=== PATIENT | female | born 1960 | race Caucasian/White ===

== ENCOUNTER 2017-11-26 11:08 | Day surgery (SDC) | payer OTHER ==
[~2017-11-26] VITALS: Ht 165.1 cm; Wt 78.2 kg
[~2017-11-26 11:08] MED LIST: ALLEGRA ALLERG180 M1 PO; ALLEGRA ALLERG180 MG; AMIT50 PO; Amitriptyline H50 MG PO; BIOTIN1 MG PO; CODLIVC PO; DOXY100 PO; HYDACE5 PO; Hydrocodone-Ap1 EA20 PO; IBUP400 PO; LISHYD2012 PO; LORA1; Multiple Vitam1 EAC1 PO; NAPR220; VENL37.5; VITA-BEE WITH1 EACH PO; ZESTORETIC 20-121 EA PO
[2017-11-26] MEDS ORDERED: Venlafaxine HCl75 MG PO (11:54)
== END 2017-11-26 14:36 | disposition home or self-care (01) ==
LOC: ORSCSDS 11:08
PROVIDERS: Orthopaedic Surgery
PROC: 01N50ZZ Release Median Nerve, Open Approach (ICD-10-PCS; principal; 2017-11-26 12:15)
DX: G56.02 Carpal tunnel syndrome, left upper limb (principal); E03.9 Hypothyroidism, unspecified; M79.7 Fibromyalgia; Z79.899 Other long term (current) drug therapy; Z87.891 Personal history of nicotine dependence
CPT/HCPCS: J0690; J1885; J2250; J7120

== ENCOUNTER → 2018-02-15 | Outpatient (CLI) | payer OTHER ==
[~2018-02-15] MED LIST changes: +Venlafaxine HCl75 MG PO
== END ==
LOC: LAB EV 08:29 → LAB SHORT 08:29
DX: N39.0 Urinary tract infection, site not specified (principal)
CPT/HCPCS: 87086; 87147

== ENCOUNTER → 2018-02-25 | Outpatient (CLI) | payer BC | END | disposition home or self-care (01) | LOC: LAB EV 18:04 → LAB SHORT 18:04 | DX: N39.0 Urinary tract infection, site not specified (principal) | CPT/HCPCS: 87086; 87147 ==

== ENCOUNTER → 2018-04-17 | Outpatient (CLI) | payer BC | END | disposition home or self-care (01) | LOC: LAB EV 09:51 → LAB SHORT 09:51 | DX: N39.0 Urinary tract infection, site not specified (principal) | CPT/HCPCS: 87086 ==

== ENCOUNTER → 2019-10-23 | Outpatient (CLI) | payer BC ==
[2019-10-25 15:07] LABS: HPV 16 Negative (Negative); HPV 18 Negative (Negative); HPV OTHER HR TYPES Positive (Negative)
== END | disposition home or self-care (01) ==
LOC: LAB SHORT 13:15 → LAB 13:15
PROVIDERS: Obstetrics & Gynecology
DX: R87.810 Cervical high risk human papillomavirus (HPV) DNA test positive (principal)
CPT/HCPCS: 87624; 87625; 88142

== ENCOUNTER → 2019-11-24 | Outpatient (CLI) | payer BC | END | disposition home or self-care (01) | LOC: LAB EV 13:23 → LAB SHORT 13:23 | DX: R30.0 Dysuria (principal) | CPT/HCPCS: 87086 ==

== ENCOUNTER → 2019-11-28 | Outpatient (CLI) | payer BC | END | disposition home or self-care (01) | LOC: PLD 08:04 → LAB SHORT 08:04 | DX: R87.612 Low grade squamous intraepithelial lesion on cytologic smear of cervix (LGSIL) (principal); R87.810 Cervical high risk human papillomavirus (HPV) DNA test positive | CPT/HCPCS: 88305 ==

== ENCOUNTER → 2020-07-29 | Outpatient (CLI) | payer BC ==
[2020-07-30 14:09] LABS: HPV 16 Negative (Negative); HPV 18 Negative (Negative); HPV OTHER HR TYPES Positive (Negative)
== END | disposition home or self-care (01) ==
LOC: LAB 14:23 → LAB SHORT 14:23
PROVIDERS: Obstetrics & Gynecology
DX: R87.612 Low grade squamous intraepithelial lesion on cytologic smear of cervix (LGSIL) (principal); R87.810 Cervical high risk human papillomavirus (HPV) DNA test positive
CPT/HCPCS: 87624; 87625; 88142

== ENCOUNTER → 2020-08-07 | Outpatient (CLI) | payer BC ==
[2020-08-08 16:10] LABS: HPV 16 Negative (Negative); HPV 18 Negative (Negative); HPV OTHER HR TYPES Positive (Negative)
== END ==
LOC: LAB SHORT 16:26 → LAB 16:26
PROVIDERS: Obstetrics & Gynecology
DX: R87.810 Cervical high risk human papillomavirus (HPV) DNA test positive (principal); R87.612 Low grade squamous intraepithelial lesion on cytologic smear of cervix (LGSIL)
CPT/HCPCS: 87624; 87625; 88142

== ENCOUNTER → 2020-08-15 | Outpatient (CLI) | payer BC | END | disposition home or self-care (01) | LOC: LAB SHORT 10:23 → LAB EV 10:23 | DX: J06.9 Acute upper respiratory infection, unspecified (principal); Z20.828 Contact with and (suspected) exposure to other viral communicable diseases | CPT/HCPCS: U0003 ==

== ENCOUNTER → 2021-09-23 | Outpatient (CLI) | payer BC | END | disposition home or self-care (01) | LOC: LAB 13:32 → LAB SHORT 13:32 | DX: N39.0 Urinary tract infection, site not specified (principal) | CPT/HCPCS: 87086 ==

== ENCOUNTER → 2021-09-29 | Outpatient (CLI) | payer BC ==
[2021-09-30 17:07] LABS: HPV 16 Negative (Negative); HPV 18 Negative (Negative); HPV OTHER HR TYPES Positive (Negative)
== END | disposition home or self-care (01) ==
LOC: LAB 13:52 → LAB SHORT 13:52
PROVIDERS: Obstetrics & Gynecology
DX: R87.610 Atypical squamous cells of undetermined significance on cytologic smear of cervix (ASC-US) (principal); R87.810 Cervical high risk human papillomavirus (HPV) DNA test positive
CPT/HCPCS: 87624; 88142